=== PATIENT | male | born 1975 | race Caucasian/White ===

== ENCOUNTER 2020-12-03 05:37 | Emergency (ER) | payer OTHER ==
[~2020-12-03 05:37] MED LIST: KETOROLAC TROME10 MG PO; MEDROL 4MG DOSEP4 MG PO; ROBAXIN750 MG PO; ULTRAM50 MG PO
[2020-12-03 07:38] LABS: BASOPHIL 0.9 % (0-2); EOSINOPHIL 5.6 % (0-5); HCT 43.1 % (42.0-52.0); HGB 14.8 g/dl (13.2-18.0); LYMPHOCYTE 35.7 % (15-48); MCH 30.1 pg (25.0-31.0); MCHC 34.3 g/dL (32.0-36.0); MCV 87.6 fL (78.0-100.0); MPV 10.7 fL (6.0-9.5); NEUTROPHIL 48.1 % (41-80); NRBC 0; PLT 235 K/uL (150-400); RBC 4.92 M/uL (4.70-6.00); RDW 13.4 % (11.5-14.0); WBC 7.7 K/uL (4.0-10.5)
[2020-12-03 07:39] LABS: BILIRUBIN NEGATIVE (NEGATIVE); BLOOD 3+ Ery/uL (NEGATIVE); CLARITY CLEAR (CLEAR); COLOR YELLOW (YELLOW); GLUCOSE (U) NORMAL (NORMAL); LEUKOCYTES NEGATIVE Leu/uL (NEGATIVE); NITRITE POSITIVE (NEGATIVE); PROTEIN 2+ mg/dL (NEGATIVE); SPECIFIC GRAVITY >=1.030 (1.001-1.030)
[2020-12-03 07:54] LABS: BACTERIA 1+; URINARY RBC 20-50
[2020-12-03 07:55] LABS: AMORPHOUS URATES CRYSTALS MODERATE
[2020-12-03 08:03] LABS: ALBUMIN 4.1 g/dL (3.4-5.0); BILIRUBIN - TOTAL 0.8 mg/dL (0.2-1.0); BUN/CREAT RATIO (CALC) 8.8 RATIO; CREATININE 1.13 mg/dL (0.67-1.17); GLOBULIN (CALCULATION) 3.6 g/dL; POTASSIUM 3.9 mmol/L (3.5-5.1); TOTAL PROTEIN 7.7 g/dL (6.4-8.2)
[2020-12-03] MEDS ORDERED: NORCO 5-325 TA1 EACH PO (10:00)
== END 2020-12-03 10:08 | disposition home or self-care (01) ==
LOC: FER 05:37
PROVIDERS: Emergency Medicine
DX: N13.2 Hydronephrosis with renal and ureteral calculous obstruction (principal); Z88.5 Allergy status to narcotic agent; Z88.8 Allergy status to other drugs, medicaments and biological substances
CPT/HCPCS: 36415; 80053; 81001; 85025; 87088; J1885

== ENCOUNTER 2021-06-04 06:10 | Emergency (ER) | payer OTHER ==
[~2021-06-04 06:10] MED LIST changes: +NORCO 5-325 TA1 EACH PO
[2021-06-04] MEDS ORDERED: NORCO 5-325 TA1 EACH PO (08:13)
[2021-06-04] MEDS ORDERED: MEDROL 4MG DOSEP4 MG PO (08:13)
== END 2021-06-04 08:29 | disposition home or self-care (01) ==
LOC: FER 06:10
DX: M54.9 Dorsalgia, unspecified (principal); Z91.010 Allergy to peanuts; W06.XXXA Fall from bed, initial encounter; Y92.009 Unspecified place in unspecified non-institutional (private) residence as the place of occurrence of the external cause
CPT/HCPCS: 72128